=== PATIENT | female | born 1970 | race African-American/Black ===

== ENCOUNTER 2018-06-22 07:53 | Inpatient (IN) ==
[2018-06-22] MEDS ORDERED: SODIUM CHLORIDE 0.9% 1,000 ML IV STA (08:50)
[2018-06-22 09:57] LABS: Basophils % 0.5 % (0.0-0.8); Eosinophils # 0.1 10*3/uL (0.0-0.87); Hematocrit 36.9 VOL% (35.7-47.0); Hemoglobin 12.7 GM/DL (12.0-16.0); Immature Granulocytes % 0.3 %; Immature Granulocytes Absolute 0.02 #; Lymphocytes # 1.6 10*3/uL (1.4-4.0); Lymphocytes % 20.9 % (21.3-54.2); Mean Corpuscular HGB Conc 34.4 GM/DL (32-36); Mean Corpuscular Hemoglobin 30 PG (27-34); Mean Corpuscular Volume 87.4 FL (87-102); Mean Platelet Volume 10.3 FL (9.6-12.0); Monocytes # 0.6 10*3/uL (0.11-0.8); Neutrophils # 5.4 10*3/uL (1.4-7.4); Neutrophils % 69.3 % (38.7-73.9); Platelet Count 273 T/CUMM (130-400); Red Blood Count 4.22 MC/CUMM (3.8-5.5); Red Cell Distribution Width 14.6 % (9.3-17.3); White Blood Count 7.8 T/CUMM (4-12)
[2018-06-22 10:05] LABS: INR 1.1
[2018-06-22 10:12] LABS: Albumin 3.3 G/DL (3.4-5.0); Bilirubin,Total 0.5 MG/DL (0.2-1.0); Calcium 9.4 MG/DL (8.5-10.1); Total Protein 8.3 G/DL (6.4-8.3)
[2018-06-22 10:13] LABS: Osmolality,Calculated 274.5 MOS/KG (273-304); Potassium 3.7 MMOL/L (3.5-5.1)
[2018-06-22] MEDS ORDERED: ASPIRIN CHEW 81 MG TABLET PO STA (10:33)
[2018-06-22] MEDS ORDERED: ACETAMINOPHEN 325 MG TABLET PO PRN (12:05)
[2018-06-22] MEDS ORDERED: ONDANSETRON 4 MG/2 ML VIAL IV PRN (12:05)
[2018-06-22 12:42] LABS: Apearance,Urine CLEAR (Clear); Bacteria,Urine Many /HPF (Few); Bilirubin,Urine Negative (Negative); Blood, Urine Negative (Negative); Glucose,Urine (UA) Negative (Negative); Ketones,Urine Negative (Negative); Mucus,Urine Occasional /LPF (Occasional); Nitrite,Urine Positive (Negative); Protein,Urine Negative; Squamous Epithelial Cell,Urine Occasional /HPF (0-10); Urine Color Yellow (Yellow); Urine Specific Gravity 1.004 (1.001-1.035); Urine Urobilinogen < 2.0 EU/DL (0.2-1.0); WBC,Urine 2 /HPF (0-6)
[2018-06-22] MEDS: cefTRIAXone 1,000 MG in SYRINGE 1 EACH IV SCH (16:45)
[2018-06-22] MEDS: FUROSEMIDE 40 MG/4 ML VIAL IV SCH (17:37)
[2018-06-22] MEDS ORDERED: hydroCHLOROthiazide 25 MG TABLET PO SCH (19:00)
[2018-06-22 19:30] LABS: CKMB % 8.2 %
[2018-06-22 19:32] LABS: Troponin I 0.14 NG/ML (0.00-0.045)
[2018-06-23 04:11] LABS: Basophils # 0.1 10*3/uL (0.0-0.2); Basophils % 0.7 % (0.0-0.8); Eosinophils # 0.1 10*3/uL (0.0-0.87); Eosinophils % 1.8 % (0.00-10.9); Hematocrit 32.3 VOL% (35.7-47.0); Immature Granulocytes % 0.3 %; Immature Granulocytes Absolute 0.02 #; Lymphocytes # 1.9 10*3/uL (1.4-4.0); Lymphocytes % 27.6 % (21.3-54.2); Mean Corpuscular HGB Conc 34.1 GM/DL (32-36); Mean Corpuscular Hemoglobin 30 PG (27-34); Mean Corpuscular Volume 86.6 FL (87-102); Mean Platelet Volume 10.4 FL (9.6-12.0); Monocytes # 0.8 10*3/uL (0.11-0.8); Neutrophils # 3.9 10*3/uL (1.4-7.4); Neutrophils % 57.6 % (38.7-73.9); Platelet Count 348 T/CUMM (130-400); Red Blood Count 3.73 MC/CUMM (3.8-5.5); Red Cell Distribution Width 14.2 % (9.3-17.3); White Blood Count 6.7 T/CUMM (4-12)
[2018-06-23 04:35] LABS: Calcium 8.7 MG/DL (8.5-10.1); Osmolality,Calculated 278.3 MOS/KG (273-304); Potassium 3.5 MMOL/L (3.5-5.1)
[2018-06-23] MEDS: LEVOTHYROXINE 75 MCG TABLET PO SCH (06:21)
[2018-06-23] MEDS: PANTOPRAZOLE 40 MG TABLET PO SCH (09:37)
[2018-06-23] MEDS: FUROSEMIDE 40 MG/4 ML VIAL IV SCH ×2 (09:37→17:17)
[2018-06-23] MEDS: cefTRIAXone 1,000 MG in SYRINGE 1 EACH IV SCH (13:45)
[2018-06-23] MEDS ORDERED: CARVEDILOL 3.125 MG TABLET PO SCH ×2 (18:30→21:00)
[2018-06-23 20:13] LABS: Risk Ratio 2.76; VLDL CHOLESTEROL 14.8 MG/DL
[2018-06-23] MEDS: CARVEDILOL 6.25 MG TABLET PO SCH (21:21)
[2018-06-23 21:50] LABS: Calcium 8.7 MG/DL (8.5-10.1); Osmolality,Calculated 274.7 MOS/KG (273-304); Potassium 3.2 MMOL/L (3.5-5.1)
[2018-06-23 21:54] LABS: CKMB % 6.8 %
[2018-06-23 21:55] LABS: Troponin I 0.191 NG/ML (0.00-0.045)
[2018-06-24 03:15] LABS: CKMB % 6.4 %
[2018-06-24 03:21] LABS: Troponin I 0.167 NG/ML (0.00-0.045)
[2018-06-24] MEDS ORDERED: SODIUM CHLORIDE 0.9% 1,000 ML IV ONE (04:12)
[2018-06-24] MEDS: CARVEDILOL 6.25 MG TABLET PO SCH ×4 (04:16→20:59)
[2018-06-24] MEDS: LEVOTHYROXINE 75 MCG TABLET PO SCH (06:20)
[2018-06-24] MEDS ORDERED: MAGNESIUM SULF RIDER 2 GM in PREMIX 1 EACH IV PRN (07:25)
[2018-06-24] MEDS ORDERED: MAGNESIUM SULF RIDER 4 GM in PREMIX 1 EACH IV PRN (07:25)
[2018-06-24] MEDS: FUROSEMIDE 40 MG/4 ML VIAL IV SCH (08:28)
[2018-06-24] MEDS ORDERED: LISINOPRIL 2.5 MG TABLET PO SCH (09:00)
[2018-06-24] MEDS: PANTOPRAZOLE 40 MG TABLET PO SCH (09:40)
[2018-06-24 09:48] LABS: CKMB % 7.2 %
[2018-06-24 09:49] LABS: Troponin I 0.147 NG/ML (0.00-0.045)
[2018-06-24] MEDS: POTASSIUM CHLORIDE 20 MEQ TABLET PO PRN ×3 (10:37→14:00)
[2018-06-24 10:49] LABS: Barbiturates Screen,Urine Negative (Negative); Benzodiazepines Screen,Urine Negative (Negative); Cannabinoid Screen,Urine Negative (Negative); Opiate Screen,Urine Negative (Negative); Phencyclidine Screen,Urine Negative (Negative)
[2018-06-24 11:26] LABS: Bilirubin,Total 0.5 MG/DL (0.2-1.0); Calcium 8.4 MG/DL (8.5-10.1); Osmolality,Calculated 278.5 MOS/KG (273-304); Potassium 3.6 MMOL/L (3.5-5.1); Total Protein 7.8 G/DL (6.4-8.3)
[2018-06-24] MEDS: cefTRIAXone 1,000 MG in SYRINGE 1 EACH IV SCH (13:13)
[2018-06-24] MEDS ORDERED: MAGNESIUM SULF RIDER 2 GM in PREMIX 1 EACH IV ONE (15:00)
[2018-06-24] MEDS ORDERED: POTASSIUM CHLORIDE 20 MEQ/15 ML UDCUP PO ONE (15:01)
[2018-06-24] MEDS: ASPIRIN CHEW 81 MG TABLET PO SCH (16:16)
[2018-06-25] MEDS: CARVEDILOL 6.25 MG TABLET PO SCH ×4 (03:58→21:01)
[2018-06-25 04:31] LABS: Basophils % 0.6 % (0.0-0.8); Eosinophils # 0.1 10*3/uL (0.0-0.87); Eosinophils % 1.9 % (0.00-10.9); Hematocrit 32.5 VOL% (35.7-47.0); Immature Granulocytes % 0.3 %; Immature Granulocytes Absolute 0.02 #; Lymphocytes # 2.4 10*3/uL (1.4-4.0); Mean Corpuscular HGB Conc 33.8 GM/DL (32-36); Mean Corpuscular Hemoglobin 29 PG (27-34); Mean Corpuscular Volume 86.2 FL (87-102); Mean Platelet Volume 10.3 FL (9.6-12.0); Monocytes # 0.9 10*3/uL (0.11-0.8); Monocytes % 14.6 % (1.7-12.7); Neutrophils # 2.9 10*3/uL (1.4-7.4); Neutrophils % 45.6 % (38.7-73.9); Platelet Count 365 T/CUMM (130-400); Red Blood Count 3.77 MC/CUMM (3.8-5.5); Red Cell Distribution Width 14.6 % (9.3-17.3); White Blood Count 6.4 T/CUMM (4-12)
[2018-06-25 05:02] LABS: Calcium 8.4 MG/DL (8.5-10.1); Osmolality,Calculated 283.3 MOS/KG (273-304); Potassium 4.2 MMOL/L (3.5-5.1)
[2018-06-25] MEDS: LEVOTHYROXINE 75 MCG TABLET PO SCH (06:35)
[2018-06-25] MEDS: ASPIRIN CHEW 81 MG TABLET PO SCH (08:39)
[2018-06-25] MEDS: PANTOPRAZOLE 40 MG TABLET PO SCH (08:39)
[2018-06-25] MEDS: CAPTOPRIL 6.25 MG TABLET PO SCH ×2 (08:40→14:39)
[2018-06-25] MEDS ORDERED: hydroCHLOROthiazide 25 MG TABLET PO SCH (09:00)
[2018-06-25] MEDS: MIDODRINE 5 MG TABLET PO SCH ×3 (11:16→20:56)
[2018-06-25] MEDS: cefTRIAXone 1,000 MG in SYRINGE 1 EACH IV SCH (13:17)
[2018-06-25] MEDS ORDERED: ENOXAPARIN 60 MG/0.6 ML SYRINGE SUBCUT ONE (16:05)
[2018-06-26] MEDS: SODIUM CHLORIDE 0.9% 1,000 ML IV SCH (00:10)
[2018-06-26] MEDS: CARVEDILOL 6.25 MG TABLET PO SCH ×4 (03:29→21:01)
[2018-06-26 04:25] LABS: Albumin 2.6 G/DL (3.4-5.0); Bilirubin,Total 0.6 MG/DL (0.2-1.0); Calcium 8.5 MG/DL (8.5-10.1); Osmolality,Calculated 280.4 MOS/KG (273-304); Potassium 4.1 MMOL/L (3.5-5.1); Total Protein 7.2 G/DL (6.4-8.3)
[2018-06-26] MEDS: LEVOTHYROXINE 75 MCG TABLET PO SCH (06:16)
[2018-06-26] MEDS ORDERED: MAGNESIUM SULF RIDER 2 GM in PREMIX 1 EACH IV PRN (11:05)
[2018-06-26] MEDS ORDERED: POTASSIUM CHLORIDE RIDER 10 MEQ in PREMIX 1 EACH IV PRN (11:05)
[2018-06-26] MEDS ORDERED: SODIUM CHLORIDE 0.9% 1,000 ML IV SCH (13:00)
[2018-06-26] MEDS ORDERED: DIAZEPAM 5 MG TABLET PO ONE (13:30)
[2018-06-26] MEDS ORDERED: diphenhydrAMINE CAP 25 MG CAPSULE PO ONE (13:30)
[2018-06-26] MEDS: PANTOPRAZOLE 40 MG TABLET PO SCH (14:00)
[2018-06-26] MEDS: MIDODRINE 5 MG TABLET PO SCH ×3 (14:00→21:02)
[2018-06-26] MEDS: ASPIRIN CHEW 81 MG TABLET PO SCH (14:00)
[2018-06-26] MEDS ORDERED: fentaNYL 100 MCG/2 ML VIAL ONE (16:00)
[2018-06-26] MEDS ORDERED: MIDAZOLAM 2 MG/2 ML VIAL ONE (16:00)
[2018-06-26] MEDS ORDERED: LIDOCAINE 1% 20 ML VIAL ONE (16:02)
[2018-06-26] MEDS ORDERED: HEPARIN 5,000 UNIT/1 ML VIAL ONE (16:19)
[2018-06-26] MEDS: cefTRIAXone 1,000 MG in SYRINGE 1 EACH IV SCH (17:58)
[2018-06-27] MEDS: SODIUM CHLORIDE 0.9% 1,000 ML IV SCH (00:07)
[2018-06-27] MEDS: CARVEDILOL 6.25 MG TABLET PO SCH ×2 (03:46→08:23)
[2018-06-27 03:50] LABS: Basophils # 0.1 10*3/uL (0.0-0.2); Basophils % 0.8 % (0.0-0.8); Eosinophils # 0.2 10*3/uL (0.0-0.87); Eosinophils % 2.1 % (0.00-10.9); Hematocrit 33.7 VOL% (35.7-47.0); Hemoglobin 11.2 GM/DL (12.0-16.0); Immature Granulocytes % 0.3 %; Immature Granulocytes Absolute 0.02 #; Lymphocytes # 2.1 10*3/uL (1.4-4.0); Lymphocytes % 29.3 % (21.3-54.2); Mean Corpuscular HGB Conc 33.2 GM/DL (32-36); Mean Corpuscular Hemoglobin 29 PG (27-34); Mean Corpuscular Volume 88.5 FL (87-102); Mean Platelet Volume 10.5 FL (9.6-12.0); Monocytes # 0.7 10*3/uL (0.11-0.8); Monocytes % 10.2 % (1.7-12.7); Neutrophils # 4.1 10*3/uL (1.4-7.4); Neutrophils % 57.3 % (38.7-73.9); Platelet Count 371 T/CUMM (130-400); Red Blood Count 3.81 MC/CUMM (3.8-5.5); Red Cell Distribution Width 14.6 % (9.3-17.3); White Blood Count 7.2 T/CUMM (4-12)
[2018-06-27 04:26] LABS: Albumin 2.6 G/DL (3.4-5.0); Bilirubin,Total 0.5 MG/DL (0.2-1.0); CKMB % 9.4 %; Calcium 8.2 MG/DL (8.5-10.1); Osmolality,Calculated 281.3 MOS/KG (273-304); Potassium 3.8 MMOL/L (3.5-5.1); Total Protein 7.2 G/DL (6.4-8.3)
[2018-06-27 04:30] LABS: Troponin I 0.227 NG/ML (0.00-0.045)
[2018-06-27] MEDS: LEVOTHYROXINE 75 MCG TABLET PO SCH (06:06)
[2018-06-27 07:41] VITALS: BP 97/65
[2018-06-27] MEDS: MIDODRINE 5 MG TABLET PO SCH (08:22)
[2018-06-27] MEDS: ASPIRIN CHEW 81 MG TABLET PO SCH (08:22)
[2018-06-27] MEDS: PANTOPRAZOLE 40 MG TABLET PO SCH (08:25)
[2018-06-27 22:11] LABS: Arsenic Concentration w/Rflx 15 mcg/L; Cadmium/Creatinine Ratio 0.5 mcg/g Cr (<0.6); Lead/Creatinine Ratio < 1 mcg/g Cr (<2)
== END 2018-06-27 13:00 | disposition home or self-care (01) | DRG 286 ==
LOC: N.ED 07:53 → N.EDINP 07:53 → SUATTDRO 12:05 → N.2W 13:48 → N.TELES 15:07
PROVIDERS: ATTEND Hospitalist
PROC: CLCCHCL (ICD-10-PCS; 2018-06-26 15:15)

== ENCOUNTER 2018-09-16 23:01 | Inpatient (IN) ==
[2018-09-16] MEDS ORDERED: FUROSEMIDE 100 MG/10 ML VIAL IV STA (23:44)
[2018-09-16] MEDS ORDERED: DILTIAZEM 50 MG/10 ML VIAL IV STA (23:44)
[2018-09-17] MEDS ORDERED: DILTIAZEM 25 MG/5 ML VIAL IV ONE (00:18)
[2018-09-17] MEDS ORDERED: BUMETANIDE 1 MG/4 ML VIAL IV STA (00:25)
[2018-09-17 01:09] LABS: INR 1.7; PT Patient Result 18.7 SECS
[2018-09-17 01:16] LABS: Albumin 2.7 G/DL (3.4-5.0); Bilirubin,Total 0.7 MG/DL (0.2-1.0); CKMB % 6.9 %; Calcium 8.5 MG/DL (8.5-10.1); Osmolality,Calculated 287.7 MOS/KG (273-304); Potassium 4.4 MMOL/L (3.5-5.1)
[2018-09-17 01:18] LABS: Troponin I 0.08 NG/ML (0.00-0.045)
[2018-09-17 01:26] LABS: Free T4 (Free Thyroxine) 1.34 NG/DL (0.76-1.46); Thyroid Stimulating Hormone 14.8 uIU/ml (0.358-3.74)
[2018-09-17 01:30] LABS: Basophils % 0.6 % (0.0-0.8); Eosinophils % 0.4 % (0.00-10.9); Hematocrit 37.3 VOL% (35.7-47.0); Hemoglobin 11.7 GM/DL (12.0-16.0); Immature Granulocytes % 0.3 %; Immature Granulocytes Absolute 0.02 #; Lymphocytes % 28.2 % (21.3-54.2); Mean Corpuscular HGB Conc 31.4 GM/DL (32-36); Mean Corpuscular Hemoglobin 28 PG (27-34); Mean Platelet Volume 9.9 FL (9.6-12.0); Monocytes # 0.8 10*3/uL (0.11-0.8); Neutrophils # 4.2 10*3/uL (1.4-7.4); Neutrophils % 59.5 % (38.7-73.9); Platelet Count 285 T/CUMM (130-400); Red Blood Count 4.24 MC/CUMM (3.8-5.5); Red Cell Distribution Width 16.7 % (9.3-17.3)
[2018-09-17 02:19] LABS: Apearance,Urine Slightly Hazy (Clear); Bacteria,Urine Occasional /HPF (Few); Bilirubin,Urine Negative (Negative); Blood, Urine Small mg/dL (Negative); Glucose,Urine (UA) Negative (Negative); Ketones,Urine Negative (Negative); Mucus,Urine Few /LPF (Occasional); Nitrite,Urine Negative (Negative); Protein,Urine Negative; RBC,Urine 1 /HPF (0-4); Squamous Epithelial Cell,Urine Occasional /HPF (0-10); Urine Color Yellow (Yellow); Urine Specific Gravity 1.008 (1.001-1.035); Urine Urobilinogen < 2.0 EU/DL (0.2-1.0); WBC,Urine 2 /HPF (0-6)
[2018-09-17 02:47] LABS: Barbiturates Screen,Urine Negative (Negative); Benzodiazepines Screen,Urine Negative (Negative); Cannabinoid Screen,Urine Negative (Negative); Opiate Screen,Urine Negative (Negative); Phencyclidine Screen,Urine Negative (Negative)
[2018-09-17] MEDS ORDERED: diphenhydrAMINE CAP 25 MG CAPSULE PO PRN (04:35)
[2018-09-17] MEDS ORDERED: NICOTINE 21 MG/24 HR PATCH TRANSDERM PRN (04:35)
[2018-09-17] MEDS ORDERED: MORPHINE 4 MG/1 ML VIAL IV PRN (04:35)
[2018-09-17] MEDS ORDERED: ACETAMINOPHEN 325 MG TABLET PO PRN (04:35)
[2018-09-17] MEDS ORDERED: ONDANSETRON 4 MG/2 ML VIAL IV PRN (04:35)
[2018-09-17] MEDS: dilTIAZem Drip 125 MG/125 ML PREMIX IV SCH (05:02)
[2018-09-17 06:18] LABS: Risk Ratio 2.52; VLDL CHOLESTEROL 14.8 MG/DL
[2018-09-17] MEDS: FUROSEMIDE 40 MG/4 ML VIAL IV SCH ×2 (07:43→17:38)
[2018-09-17] MEDS: LEVOTHYROXINE 75 MCG TABLET PO SCH (07:43)
[2018-09-17] MEDS: DIGOXIN 0.125 MG TABLET PO SCH (10:15)
[2018-09-17] MEDS: ASPIRIN CHEW 81 MG TABLET PO SCH (10:15)
[2018-09-17] MEDS: PANTOPRAZOLE 40 MG TABLET PO SCH (10:15)
[2018-09-17] MEDS: ENOXAPARIN 40 MG/0.4 ML SYRINGE SUBCUT SCH (10:16)
[2018-09-17] MEDS: SPIRONOLACTONE 25 MG TABLET PO SCH (10:16)
[2018-09-17] MEDS: CARVEDILOL 6.25 MG TABLET PO SCH ×2 (12:02→21:06)
[2018-09-17] MEDS: ASCORBIC ACID 500 MG TABLET PO SCH ×2 (12:02→21:06)
[2018-09-17] MEDS: POTASSIUM CHLORIDE 20 MEQ TABLET PO SCH (12:02)
[2018-09-17] MEDS: LOSARTAN 25 MG TABLET PO SCH (12:02)
[2018-09-17] MEDS: MAGNESIUM CHLORIDE 64 MG TABLET PO SCH ×2 (12:02→21:06)
[2018-09-17] MEDS: traZODone 50 MG TABLET PO SCH (21:06)
[2018-09-18 04:27] LABS: Calcium 8.4 MG/DL (8.5-10.1); Osmolality,Calculated 281.3 MOS/KG (273-304)
[2018-09-18] MEDS: LEVOTHYROXINE 75 MCG TABLET PO SCH (06:41)
[2018-09-18] MEDS: dilTIAZem Drip 125 MG/125 ML PREMIX IV SCH (07:04)
[2018-09-18] MEDS: FUROSEMIDE 40 MG/4 ML VIAL IV SCH ×3 (08:52→20:32)
[2018-09-18] MEDS: ALUMINUM/MAGNES/SIMETH MAX STR 30 ML UDCUP PO PRN (09:31)
[2018-09-18] MEDS: ENOXAPARIN 40 MG/0.4 ML SYRINGE SUBCUT SCH (10:13)
[2018-09-18] MEDS: DIGOXIN 0.125 MG TABLET PO SCH (10:14)
[2018-09-18] MEDS: LOSARTAN 25 MG TABLET PO SCH (10:14)
[2018-09-18] MEDS: ASPIRIN CHEW 81 MG TABLET PO SCH (10:14)
[2018-09-18] MEDS: ASCORBIC ACID 500 MG TABLET PO SCH ×2 (10:14→20:22)
[2018-09-18] MEDS: POTASSIUM CHLORIDE 20 MEQ TABLET PO SCH (10:14)
[2018-09-18] MEDS: MAGNESIUM CHLORIDE 64 MG TABLET PO SCH ×2 (10:14→20:22)
[2018-09-18] MEDS: PANTOPRAZOLE 40 MG TABLET PO SCH (10:15)
[2018-09-18] MEDS: CARVEDILOL 6.25 MG TABLET PO SCH ×2 (10:15→20:22)
[2018-09-18] MEDS: SPIRONOLACTONE 25 MG TABLET PO SCH (10:15)
[2018-09-18] MEDS: VANCOMYCIN INJ 1,250 MG in SODIUM CHLORIDE 0.9% 250 ML IV SCH (15:04)
[2018-09-18] MEDS: MIDODRINE 5 MG TABLET PO SCH ×3 (20:22→20:28)
[2018-09-18] MEDS: AMIODARONE 200 MG TABLET PO SCH (20:22)
[2018-09-18] MEDS: traZODone 50 MG TABLET PO SCH (20:22)
[2018-09-19] MEDS: VANCOMYCIN INJ 1,250 MG in SODIUM CHLORIDE 0.9% 250 ML IV SCH (00:05)
[2018-09-19] MEDS: dilTIAZem Drip 125 MG/125 ML PREMIX IV SCH (04:03)
[2018-09-19 04:23] LABS: Basophils % 0.5 % (0.0-0.8); Eosinophils # 0.1 10*3/uL (0.0-0.87); Eosinophils % 1.6 % (0.00-10.9); Hematocrit 33.9 VOL% (35.7-47.0); Hemoglobin 11.1 GM/DL (12.0-16.0); Immature Granulocytes % 0.3 %; Immature Granulocytes Absolute 0.02 #; Lymphocytes # 2.3 10*3/uL (1.4-4.0); Lymphocytes % 30.4 % (21.3-54.2); Mean Corpuscular HGB Conc 32.7 GM/DL (32-36); Mean Corpuscular Hemoglobin 28 PG (27-34); Mean Corpuscular Volume 85.8 FL (87-102); Monocytes # 0.8 10*3/uL (0.11-0.8); Monocytes % 10.4 % (1.7-12.7); Neutrophils # 4.2 10*3/uL (1.4-7.4); Neutrophils % 56.8 % (38.7-73.9); Platelet Count 271 T/CUMM (130-400); Red Blood Count 3.95 MC/CUMM (3.8-5.5); Red Cell Distribution Width 16.2 % (9.3-17.3); White Blood Count 7.4 T/CUMM (4-12)
[2018-09-19 04:40] LABS: Calcium 8.2 MG/DL (8.5-10.1); Osmolality,Calculated 284.1 MOS/KG (273-304); Potassium 3.9 MMOL/L (3.5-5.1)
[2018-09-19 04:42] LABS: Calcium 8.3 MG/DL (8.5-10.1); Potassium 3.9 MMOL/L (3.5-5.1)
[2018-09-19 04:56] LABS: Total Protein 7.3 G/DL (6.4-8.3)
[2018-09-19] MEDS: LEVOTHYROXINE 100 MCG TABLET PO SCH (05:52)
[2018-09-19 06:19] LABS: Immunoglobulin A (Chem) 377 MG/DL (70-400); Immunoglobulin G (Chem) 2260 MG/DL (700-1600); Immunoglobulin M (Chem) 106 MG/DL (40-230); Total Protein (Chem) 7.3 G/DL (6.4-8.3)
[2018-09-19 07:45] LABS: Albumin (SPE) 3.1 G/DL (3.2-5.3); Albumin (SPE) Rel % 42.6 %; Alpha 1 (SPE) 0.2 G/DL (0.1-0.4); Alpha 1 (SPE) Rel % 3.2 %; Alpha 2 (SPE) 0.8 G/DL (0.4-1.0); Alpha 2 (SPE) Rel % 10.6 %; Beta (SPE) 0.8 G/DL (0.5-1.1); Beta (SPE) Rel % 11.1 %; Gamma (SPE) 2.4 G/DL (0.7-1.7); Gamma (SPE) Rel % 32.5 %
[2018-09-19] MEDS: MIDODRINE 5 MG TABLET PO SCH ×3 (08:46→21:06)
[2018-09-19] MEDS: POTASSIUM CHLORIDE 20 MEQ TABLET PO SCH (08:47)
[2018-09-19] MEDS: DIGOXIN 0.125 MG TABLET PO SCH (08:47)
[2018-09-19] MEDS: AMIODARONE 200 MG TABLET PO SCH ×2 (08:47→21:07)
[2018-09-19] MEDS: CARVEDILOL 6.25 MG TABLET PO SCH ×2 (08:47→21:07)
[2018-09-19] MEDS: MAGNESIUM CHLORIDE 64 MG TABLET PO SCH ×2 (08:47→21:07)
[2018-09-19] MEDS: ASCORBIC ACID 500 MG TABLET PO SCH ×2 (08:47→21:07)
[2018-09-19] MEDS: ASPIRIN CHEW 81 MG TABLET PO SCH (08:47)
[2018-09-19] MEDS: LOSARTAN 25 MG TABLET PO SCH (08:48)
[2018-09-19] MEDS: PANTOPRAZOLE 40 MG TABLET PO SCH (08:48)
[2018-09-19] MEDS: ENOXAPARIN 40 MG/0.4 ML SYRINGE SUBCUT SCH (08:48)
[2018-09-19] MEDS: SPIRONOLACTONE 25 MG TABLET PO SCH (08:48)
[2018-09-19] MEDS: ALUMINUM/MAGNES/SIMETH MAX STR 30 ML UDCUP PO PRN ×2 (08:54→17:50)
[2018-09-19] MEDS: FUROSEMIDE 40 MG/4 ML VIAL IV SCH ×2 (10:40→16:30)
[2018-09-19] MEDS: APIXABAN 5 MG TABLET PO SCH ×2 (11:50→21:07)
[2018-09-19] MEDS: ceFAZolin 2,000 MG in PREMIX 1 EACH IV SCH ×2 (11:50→18:40)
[2018-09-19] MEDS: metOLazone 5 MG TABLET PO SCH (11:50)
[2018-09-19] MEDS: traZODone 50 MG TABLET PO SCH (21:07)
[2018-09-20] MEDS: ceFAZolin 2,000 MG in PREMIX 1 EACH IV SCH ×3 (04:27→18:15)
[2018-09-20 04:35] LABS: Basophils % 0.6 % (0.0-0.8); Eosinophils # 0.2 10*3/uL (0.0-0.87); Eosinophils % 2.7 % (0.00-10.9); Hematocrit 33.7 VOL% (35.7-47.0); Hemoglobin 11.2 GM/DL (12.0-16.0); Immature Granulocytes % 0.4 %; Immature Granulocytes Absolute 0.03 #; Lymphocytes # 2.2 10*3/uL (1.4-4.0); Lymphocytes % 31.7 % (21.3-54.2); Mean Corpuscular HGB Conc 33.2 GM/DL (32-36); Mean Corpuscular Hemoglobin 28 PG (27-34); Mean Corpuscular Volume 85.5 FL (87-102); Mean Platelet Volume 10.2 FL (9.6-12.0); Monocytes # 0.6 10*3/uL (0.11-0.8); Neutrophils % 56.6 % (38.7-73.9); Platelet Count 293 T/CUMM (130-400); Red Blood Count 3.94 MC/CUMM (3.8-5.5); Red Cell Distribution Width 16.3 % (9.3-17.3)
[2018-09-20 04:56] LABS: Collection Time,Urine 24 HOURS; Total Protein 24 Hr Ur Result 520 MG/24HR (0-149.1); Total Volume,Urine 6500 ML (400-2000)
[2018-09-20 04:59] LABS: Calcium 8.6 MG/DL (8.5-10.1); Osmolality,Calculated 281.4 MOS/KG (273-304); Potassium 3.9 MMOL/L (3.5-5.1)
[2018-09-20] MEDS: LEVOTHYROXINE 100 MCG TABLET PO SCH (06:37)
[2018-09-20 07:46] LABS: 24 Hr Protein (Bench) 520 MG/24HR (0-149.1)
[2018-09-20] MEDS: ALUMINUM/MAGNES/SIMETH MAX STR 30 ML UDCUP PO PRN ×2 (08:03→15:35)
[2018-09-20] MEDS: MIDODRINE 5 MG TABLET PO SCH ×3 (09:14→21:57)
[2018-09-20] MEDS: LOSARTAN 25 MG TABLET PO SCH (09:15)
[2018-09-20] MEDS: PANTOPRAZOLE 40 MG TABLET PO SCH (09:15)
[2018-09-20] MEDS: FUROSEMIDE 40 MG/4 ML VIAL IV SCH ×2 (09:15→15:35)
[2018-09-20] MEDS: AMIODARONE 200 MG TABLET PO SCH ×2 (09:15→21:57)
[2018-09-20] MEDS: SPIRONOLACTONE 25 MG TABLET PO SCH (09:15)
[2018-09-20] MEDS: ASPIRIN CHEW 81 MG TABLET PO SCH (09:15)
[2018-09-20] MEDS: DIGOXIN 0.125 MG TABLET PO SCH (09:15)
[2018-09-20] MEDS: CARVEDILOL 6.25 MG TABLET PO SCH ×2 (09:15→21:58)
[2018-09-20] MEDS: APIXABAN 5 MG TABLET PO SCH ×2 (09:15→21:57)
[2018-09-20] MEDS: MAGNESIUM CHLORIDE 64 MG TABLET PO SCH ×2 (09:15→21:57)
[2018-09-20] MEDS: POTASSIUM CHLORIDE 20 MEQ TABLET PO SCH (09:15)
[2018-09-20] MEDS: ASCORBIC ACID 500 MG TABLET PO SCH ×2 (09:15→21:57)
[2018-09-20] MEDS: metOLazone 5 MG TABLET PO SCH (09:31)
[2018-09-20] MEDS: traZODone 50 MG TABLET PO SCH (21:57)
[2018-09-21] MEDS: ceFAZolin 2,000 MG in PREMIX 1 EACH IV SCH ×3 (03:45→18:05)
[2018-09-21 04:25] LABS: Calcium 8.9 MG/DL (8.5-10.1); Osmolality,Calculated 279.5 MOS/KG (273-304)
[2018-09-21] MEDS: LEVOTHYROXINE 100 MCG TABLET PO SCH (07:00)
[2018-09-21] MEDS: ALUMINUM/MAGNES/SIMETH MAX STR 30 ML UDCUP PO PRN ×2 (09:05→16:43)
[2018-09-21] MEDS: DIGOXIN 0.125 MG TABLET PO SCH (09:06)
[2018-09-21] MEDS: PANTOPRAZOLE 40 MG TABLET PO SCH (09:06)
[2018-09-21] MEDS: SPIRONOLACTONE 25 MG TABLET PO SCH (09:06)
[2018-09-21] MEDS: MIDODRINE 5 MG TABLET PO SCH ×3 (09:06→21:42)
[2018-09-21] MEDS: CARVEDILOL 6.25 MG TABLET PO SCH ×2 (09:07→21:43)
[2018-09-21] MEDS: metOLazone 5 MG TABLET PO SCH (09:07)
[2018-09-21] MEDS: ASPIRIN CHEW 81 MG TABLET PO SCH (09:07)
[2018-09-21] MEDS: ASCORBIC ACID 500 MG TABLET PO SCH ×2 (09:07→21:42)
[2018-09-21] MEDS: MAGNESIUM CHLORIDE 64 MG TABLET PO SCH ×2 (09:07→21:42)
[2018-09-21] MEDS: POTASSIUM CHLORIDE 20 MEQ TABLET PO SCH (09:07)
[2018-09-21] MEDS: APIXABAN 5 MG TABLET PO SCH ×2 (09:07→21:44)
[2018-09-21] MEDS: AMIODARONE 200 MG TABLET PO SCH ×2 (09:08→21:43)
[2018-09-21] MEDS: FUROSEMIDE 40 MG/4 ML VIAL IV SCH ×2 (09:08→16:42)
[2018-09-21] MEDS: traZODone 50 MG TABLET PO SCH (21:42)
[2018-09-22 05:37] LABS: Osmolality,Calculated 272.1 MOS/KG (273-304); Potassium 4.1 MMOL/L (3.5-5.1)
[2018-09-22] MEDS: ceFAZolin 2,000 MG in PREMIX 1 EACH IV SCH ×3 (06:31→18:26)
[2018-09-22] MEDS: LEVOTHYROXINE 100 MCG TABLET PO SCH (06:31)
[2018-09-22 09:03] LABS: Anti SS-A Antibodies < 16 EU/ML
[2018-09-22 09:05] LABS: Double Stranded DNA Antibodies < 25.0 IU/ML
[2018-09-22] MEDS: ALUMINUM/MAGNES/SIMETH MAX STR 30 ML UDCUP PO PRN (09:18)
[2018-09-22] MEDS: APIXABAN 5 MG TABLET PO SCH ×2 (09:19→20:48)
[2018-09-22] MEDS: POTASSIUM CHLORIDE 20 MEQ TABLET PO SCH (09:19)
[2018-09-22] MEDS: ASCORBIC ACID 500 MG TABLET PO SCH ×2 (09:19→20:48)
[2018-09-22] MEDS: MAGNESIUM CHLORIDE 64 MG TABLET PO SCH ×2 (09:19→20:48)
[2018-09-22] MEDS: AMIODARONE 200 MG TABLET PO SCH ×2 (09:20→20:48)
[2018-09-22] MEDS: DIGOXIN 0.125 MG TABLET PO SCH (09:20)
[2018-09-22] MEDS: ASPIRIN CHEW 81 MG TABLET PO SCH (09:20)
[2018-09-22] MEDS: metOLazone 5 MG TABLET PO SCH (09:21)
[2018-09-22] MEDS: SPIRONOLACTONE 25 MG TABLET PO SCH (09:21)
[2018-09-22] MEDS: FUROSEMIDE 40 MG/4 ML VIAL IV SCH ×2 (09:21→15:35)
[2018-09-22] MEDS: CARVEDILOL 6.25 MG TABLET PO SCH ×2 (09:21→20:48)
[2018-09-22] MEDS: PANTOPRAZOLE 40 MG TABLET PO SCH (09:22)
[2018-09-22] MEDS: MIDODRINE 5 MG TABLET PO SCH ×3 (10:22→20:48)
[2018-09-22] MEDS: traZODone 50 MG TABLET PO SCH (20:48)
[2018-09-23] MEDS: ceFAZolin 2,000 MG in PREMIX 1 EACH IV SCH ×3 (02:13→18:18)
[2018-09-23 06:11] LABS: Calcium 9.3 MG/DL (8.5-10.1)
[2018-09-23] MEDS: LEVOTHYROXINE 100 MCG TABLET PO SCH (06:20)
[2018-09-23] MEDS: MAGNESIUM CHLORIDE 64 MG TABLET PO SCH ×2 (09:46→20:51)
[2018-09-23] MEDS: ASCORBIC ACID 500 MG TABLET PO SCH ×2 (09:47→20:51)
[2018-09-23] MEDS: metOLazone 5 MG TABLET PO SCH (09:47)
[2018-09-23] MEDS: PANTOPRAZOLE 40 MG TABLET PO SCH (09:47)
[2018-09-23] MEDS: DIGOXIN 0.125 MG TABLET PO SCH (09:47)
[2018-09-23] MEDS: AMIODARONE 200 MG TABLET PO SCH ×2 (09:47→20:12)
[2018-09-23] MEDS: APIXABAN 5 MG TABLET PO SCH ×2 (09:48→20:51)
[2018-09-23] MEDS: ASPIRIN CHEW 81 MG TABLET PO SCH (09:48)
[2018-09-23] MEDS: POTASSIUM CHLORIDE 20 MEQ TABLET PO SCH (09:48)
[2018-09-23] MEDS: SPIRONOLACTONE 25 MG TABLET PO SCH (09:48)
[2018-09-23] MEDS: CARVEDILOL 6.25 MG TABLET PO SCH ×2 (09:49→20:12)
[2018-09-23] MEDS: FUROSEMIDE 40 MG/4 ML VIAL IV SCH (09:49)
[2018-09-23] MEDS: MIDODRINE 5 MG TABLET PO SCH ×3 (10:02→20:51)
[2018-09-23] MEDS ORDERED: SPIRONOLACTONE 25 MG TABLET PO SCH (13:18)
[2018-09-23] MEDS: FUROSEMIDE 80 MG TABLET PO SCH (16:33)
[2018-09-23] MEDS: traZODone 50 MG TABLET PO SCH (20:51)
[2018-09-24] MEDS: ceFAZolin 2,000 MG in PREMIX 1 EACH IV SCH ×2 (02:05→10:46)
[2018-09-24 05:42] LABS: Osmolality,Calculated 278.8 MOS/KG (273-304); Potassium 4.1 MMOL/L (3.5-5.1)
[2018-09-24] MEDS: LEVOTHYROXINE 100 MCG TABLET PO SCH (06:09)
[2018-09-24 08:14] VITALS: BP 88/59
[2018-09-24] MEDS ORDERED: SPIRONOLACTONE 25 MG TABLET PO SCH (09:00)
[2018-09-24] MEDS: MIDODRINE 5 MG TABLET PO SCH (09:16)
[2018-09-24] MEDS: ASCORBIC ACID 500 MG TABLET PO SCH (09:17)
[2018-09-24] MEDS: MAGNESIUM CHLORIDE 64 MG TABLET PO SCH (09:17)
[2018-09-24] MEDS: APIXABAN 5 MG TABLET PO SCH (09:17)
[2018-09-24] MEDS: metOLazone 5 MG TABLET PO SCH (09:17)
[2018-09-24] MEDS: AMIODARONE 200 MG TABLET PO SCH (09:18)
[2018-09-24] MEDS: FUROSEMIDE 80 MG TABLET PO SCH (09:18)
[2018-09-24] MEDS: PANTOPRAZOLE 40 MG TABLET PO SCH (09:19)
[2018-09-24] MEDS: DIGOXIN 0.125 MG TABLET PO SCH (09:19)
[2018-09-24] MEDS: ASPIRIN CHEW 81 MG TABLET PO SCH (09:20)
[2018-09-24] MEDS: CARVEDILOL 6.25 MG TABLET PO SCH (09:20)
[2018-09-24] MEDS: POTASSIUM CHLORIDE 20 MEQ TABLET PO SCH (09:20)
== END 2018-09-24 12:17 | disposition home or self-care (01) | DRG 308 ==
LOC: EDUNIT# → EDBD → N.ED 23:01 → N.EDINP 23:01 → SUATTDRO 09-17 01:53 → N.TELES 09-17 02:30 → SUATTDRO 09-18 10:20
PROVIDERS: ADMIT Internal Medicine Infectious Disease; ATTEND Family Medicine

== ENCOUNTER 2018-10-02 21:15 | Inpatient (IN) ==
[2018-10-02] MEDS ORDERED: ADENOSINE 6 MG/2 ML VIAL IV STA (21:40)
[2018-10-02 21:53] LABS: Basophils % 0.5 % (0.0-0.8); Eosinophils # 0.2 10*3/uL (0.0-0.87); Eosinophils % 2.1 % (0.00-10.9); Hematocrit 31.7 VOL% (35.7-47.0); Hemoglobin 10.4 GM/DL (12.0-16.0); Immature Granulocytes % 0.3 %; Immature Granulocytes Absolute 0.02 #; Lymphocytes # 2.9 10*3/uL (1.4-4.0); Mean Corpuscular HGB Conc 32.8 GM/DL (32-36); Mean Corpuscular Hemoglobin 29 PG (27-34); Mean Corpuscular Volume 87.8 FL (87-102); Mean Platelet Volume 9.4 FL (9.6-12.0); Monocytes # 0.8 10*3/uL (0.11-0.8); Monocytes % 9.6 % (1.7-12.7); Neutrophils # 4.1 10*3/uL (1.4-7.4); Neutrophils % 51.5 % (38.7-73.9); Platelet Count 361 T/CUMM (130-400); Red Blood Count 3.61 MC/CUMM (3.8-5.5)
[2018-10-02 21:59] LABS: INR 1.2; PT Patient Result 12.5 SECS
[2018-10-02 22:20] LABS: Alanine Aminotransferase 15 U/L (13-56); Albumin 2.9 G/DL (3.4-5.0); Alkaline Phosphatase 78 U/L (45-117); Aspartate Amino Transferase 32 U/L (0-37); Bilirubin,Total < 0.39 MG/DL (0.2-1.0); Blood Urea Nitrogen 20 MG/DL (7-18); Calcium 8.6 MG/DL (8.5-10.1); Glucose 106 MG/DL (74-106); Osmolality,Calculated 275.8 MOS/KG (273-304); Sodium 137 MMOL/L (136-145); Total Protein 8.7 G/DL (6.4-8.3)
[2018-10-03 01:48] LABS: Barbiturates Screen,Urine Negative (Negative); Benzodiazepines Screen,Urine Negative (Negative); Cannabinoid Screen,Urine Negative (Negative); Opiate Screen,Urine Negative (Negative); Phencyclidine Screen,Urine Negative (Negative)
[2018-10-03] MEDS ORDERED: ACETAMINOPHEN 325 MG TABLET PO PRN (02:54)
[2018-10-03] MEDS ORDERED: DOCUSATE SODIUM 100 MG CAPSULE PO PRN (02:54)
[2018-10-03] MEDS ORDERED: ONDANSETRON 4 MG/2 ML VIAL IV PRN (02:54)
[2018-10-03 04:11] LABS: Basophils % 0.5 % (0.0-0.8); Eosinophils # 0.1 10*3/uL (0.0-0.87); Eosinophils % 1.2 % (0.00-10.9); Hematocrit 29.6 VOL% (35.7-47.0); Hemoglobin 9.7 GM/DL (12.0-16.0); Immature Granulocytes % 0.4 %; Immature Granulocytes Absolute 0.03 #; Lymphocytes # 2.2 10*3/uL (1.4-4.0); Lymphocytes % 27.9 % (21.3-54.2); Mean Corpuscular HGB Conc 32.8 GM/DL (32-36); Mean Corpuscular Hemoglobin 29 PG (27-34); Mean Corpuscular Volume 87.3 FL (87-102); Mean Platelet Volume 9.6 FL (9.6-12.0); Monocytes # 1.1 10*3/uL (0.11-0.8); Monocytes % 13.6 % (1.7-12.7); Neutrophils # 4.5 10*3/uL (1.4-7.4); Neutrophils % 56.4 % (38.7-73.9); Platelet Count 297 T/CUMM (130-400); Red Blood Count 3.39 MC/CUMM (3.8-5.5); Red Cell Distribution Width 16.9 % (9.3-17.3)
[2018-10-03 04:18] LABS: Calcium 8.1 MG/DL (8.5-10.1); Osmolality,Calculated 276.7 MOS/KG (273-304)
[2018-10-03] MEDS ORDERED: LEVOTHYROXINE 75 MCG TABLET PO SCH (07:00)
[2018-10-03] MEDS ORDERED: CARVEDILOL 6.25 MG TABLET PO SCH (09:00)
[2018-10-03] MEDS ORDERED: metOLazone 5 MG TABLET PO SCH (09:00)
[2018-10-03] MEDS ORDERED: LEVOTHYROXINE 50 MCG TABLET PO SCH ×2 (09:35→09:59)
[2018-10-03] MEDS: ASPIRIN CHEW 81 MG TABLET PO SCH (09:38)
[2018-10-03] MEDS: MAGNESIUM CHLORIDE 64 MG TABLET PO SCH ×2 (09:38→21:22)
[2018-10-03] MEDS: SPIRONOLACTONE 25 MG TABLET PO SCH (09:38)
[2018-10-03] MEDS: FAMOTIDINE 20 MG TABLET PO SCH ×2 (09:38→21:23)
[2018-10-03] MEDS: MIDODRINE 5 MG TABLET PO SCH ×3 (09:38→21:23)
[2018-10-03] MEDS: ASCORBIC ACID 500 MG TABLET PO SCH ×2 (09:39→21:22)
[2018-10-03] MEDS: POTASSIUM CHLORIDE 20 MEQ TABLET PO SCH (09:39)
[2018-10-03] MEDS: FUROSEMIDE 80 MG TABLET PO SCH ×2 (09:39→16:37)
[2018-10-03] MEDS: APIXABAN 5 MG TABLET PO SCH ×3 (09:39→21:23)
[2018-10-03] MEDS: AMIODARONE 200 MG TABLET PO SCH ×2 (09:39→21:22)
[2018-10-03] MEDS ORDERED: HEPARIN DRIP 25,000 UNITS/500 ML PREMIX IV SCH (10:00)
[2018-10-03] MEDS: DIGOXIN 0.125 MG TABLET PO SCH (13:33)
[2018-10-03] MEDS: traZODone 50 MG TABLET PO SCH (21:22)
[2018-10-03] MEDS: CARVEDILOL 12.5 MG TABLET PO SCH (21:24)
[2018-10-04 05:14] LABS: Calcium 8.7 MG/DL (8.5-10.1); Osmolality,Calculated 282.3 MOS/KG (273-304); Potassium 4.4 MMOL/L (3.5-5.1)
[2018-10-04 05:31] LABS: Basophils # 0.1 10*3/uL (0.0-0.2); Basophils % 1.1 % (0.0-0.8); Eosinophils # 0.1 10*3/uL (0.0-0.87); Hematocrit 29.7 VOL% (35.7-47.0); Hemoglobin 9.9 GM/DL (12.0-16.0); Immature Granulocytes % 0.4 %; Immature Granulocytes Absolute 0.02 #; Lymphocytes # 1.8 10*3/uL (1.4-4.0); Mean Corpuscular HGB Conc 33.3 GM/DL (32-36); Mean Corpuscular Hemoglobin 29 PG (27-34); Mean Corpuscular Volume 87.4 FL (87-102); Mean Platelet Volume 9.7 FL (9.6-12.0); Monocytes # 0.7 10*3/uL (0.11-0.8); Monocytes % 12.4 % (1.7-12.7); Neutrophils % 53.1 % (38.7-73.9); Platelet Count 309 T/CUMM (130-400); Red Cell Distribution Width 16.6 % (9.3-17.3); White Blood Count 5.6 T/CUMM (4-12)
[2018-10-04] MEDS: APIXABAN 5 MG TABLET PO SCH ×2 (08:54→21:37)
[2018-10-04] MEDS: POTASSIUM CHLORIDE 20 MEQ TABLET PO SCH (08:54)
[2018-10-04] MEDS: CARVEDILOL 12.5 MG TABLET PO SCH ×2 (08:54→21:37)
[2018-10-04] MEDS: FAMOTIDINE 20 MG TABLET PO SCH ×2 (08:54→21:38)
[2018-10-04] MEDS: ASPIRIN CHEW 81 MG TABLET PO SCH (08:54)
[2018-10-04] MEDS: ASCORBIC ACID 500 MG TABLET PO SCH ×2 (08:54→21:36)
[2018-10-04] MEDS: AMIODARONE 200 MG TABLET PO SCH ×2 (08:54→21:37)
[2018-10-04] MEDS: MAGNESIUM CHLORIDE 64 MG TABLET PO SCH ×2 (08:54→21:36)
[2018-10-04] MEDS: MIDODRINE 5 MG TABLET PO SCH ×3 (08:54→21:37)
[2018-10-04] MEDS: FUROSEMIDE 80 MG TABLET PO SCH ×2 (08:55→09:28)
[2018-10-04] MEDS: SPIRONOLACTONE 25 MG TABLET PO SCH (08:55)
[2018-10-04] MEDS ORDERED: FUROSEMIDE 40 MG TABLET PO SCH (09:30)
[2018-10-04] MEDS: DIGOXIN 0.125 MG TABLET PO SCH (14:41)
[2018-10-04] MEDS: FUROSEMIDE 20 MG TABLET PO SCH (16:33)
[2018-10-04] MEDS: metOLazone 5 MG TABLET PO SCH (16:33)
[2018-10-04] MEDS: SKIN HEALING OINT (AQUAPHOR) 50 GM TUBE TOP SCH (16:34)
[2018-10-04] MEDS: traZODone 50 MG TABLET PO SCH (21:38)
[2018-10-05 04:16] LABS: Basophils % 0.6 % (0.0-0.8); Eosinophils # 0.1 10*3/uL (0.0-0.87); Hemoglobin 10.1 GM/DL (12.0-16.0); Immature Granulocytes % 0.2 %; Immature Granulocytes Absolute 0.01 #; Lymphocytes # 2.5 10*3/uL (1.4-4.0); Lymphocytes % 37.8 % (21.3-54.2); Mean Corpuscular HGB Conc 33.7 GM/DL (32-36); Mean Corpuscular Hemoglobin 29 PG (27-34); Mean Corpuscular Volume 86.5 FL (87-102); Mean Platelet Volume 9.5 FL (9.6-12.0); Monocytes # 0.7 10*3/uL (0.11-0.8); Monocytes % 11.4 % (1.7-12.7); Neutrophils # 3.1 10*3/uL (1.4-7.4); Platelet Count 325 T/CUMM (130-400); Red Blood Count 3.47 MC/CUMM (3.8-5.5); Red Cell Distribution Width 16.7 % (9.3-17.3); White Blood Count 6.5 T/CUMM (4-12)
[2018-10-05 04:41] LABS: Calcium 8.6 MG/DL (8.5-10.1); Osmolality,Calculated 280.5 MOS/KG (273-304); Potassium 4.2 MMOL/L (3.5-5.1)
[2018-10-05] MEDS: LEVOTHYROXINE 100 MCG TABLET PO SCH (06:20)
[2018-10-05] MEDS: SKIN HEALING OINT (AQUAPHOR) 50 GM TUBE TOP SCH (09:00)
[2018-10-05] MEDS: MIDODRINE 5 MG TABLET PO SCH ×3 (09:45→22:31)
[2018-10-05] MEDS: POTASSIUM CHLORIDE 20 MEQ TABLET PO SCH (09:45)
[2018-10-05] MEDS: MAGNESIUM CHLORIDE 64 MG TABLET PO SCH ×2 (09:45→22:32)
[2018-10-05] MEDS: FAMOTIDINE 20 MG TABLET PO SCH ×2 (09:45→22:32)
[2018-10-05] MEDS: AMIODARONE 200 MG TABLET PO SCH ×2 (09:45→22:33)
[2018-10-05] MEDS: APIXABAN 5 MG TABLET PO SCH ×2 (09:45→22:31)
[2018-10-05] MEDS: FUROSEMIDE 20 MG TABLET PO SCH ×2 (09:45→16:35)
[2018-10-05] MEDS: metOLazone 5 MG TABLET PO SCH (09:45)
[2018-10-05] MEDS: ASCORBIC ACID 500 MG TABLET PO SCH ×2 (09:45→22:32)
[2018-10-05] MEDS: SPIRONOLACTONE 25 MG TABLET PO SCH (09:45)
[2018-10-05] MEDS: ASPIRIN CHEW 81 MG TABLET PO SCH (09:45)
[2018-10-05] MEDS: CARVEDILOL 12.5 MG TABLET PO SCH ×2 (09:45→22:33)
[2018-10-05 10:33] LABS: Free T4 (Free Thyroxine) 1.12 NG/DL (0.76-1.46)
[2018-10-05] MEDS: traZODone 50 MG TABLET PO SCH (22:33)
[2018-10-06 05:37] LABS: Basophils # 0.1 10*3/uL (0.0-0.2); Calcium 8.8 MG/DL (8.5-10.1); Eosinophils # 0.2 10*3/uL (0.0-0.87); Eosinophils % 2.4 % (0.00-10.9); Hematocrit 29.3 VOL% (35.7-47.0); Hemoglobin 9.7 GM/DL (12.0-16.0); Immature Granulocytes % 0.5 %; Immature Granulocytes Absolute 0.03 #; Lymphocytes # 2.6 10*3/uL (1.4-4.0); Lymphocytes % 41.1 % (21.3-54.2); Mean Corpuscular HGB Conc 33.1 GM/DL (32-36); Mean Corpuscular Hemoglobin 28 PG (27-34); Mean Corpuscular Volume 85.9 FL (87-102); Mean Platelet Volume 9.6 FL (9.6-12.0); Monocytes # 0.8 10*3/uL (0.11-0.8); Neutrophils # 2.7 10*3/uL (1.4-7.4); Osmolality,Calculated 279.5 MOS/KG (273-304); Platelet Count 342 T/CUMM (130-400); Potassium 3.9 MMOL/L (3.5-5.1); Red Blood Count 3.41 MC/CUMM (3.8-5.5); Red Cell Distribution Width 16.4 % (9.3-17.3); White Blood Count 6.2 T/CUMM (4-12)
[2018-10-06] MEDS: LEVOTHYROXINE 100 MCG TABLET PO SCH (06:33)
[2018-10-06] MEDS: SPIRONOLACTONE 25 MG TABLET PO SCH (10:45)
[2018-10-06] MEDS: SKIN HEALING OINT (AQUAPHOR) 50 GM TUBE TOP SCH (10:46)
[2018-10-06] MEDS: ASPIRIN CHEW 81 MG TABLET PO SCH (10:46)
[2018-10-06] MEDS: AMIODARONE 200 MG TABLET PO SCH ×2 (10:47→23:16)
[2018-10-06] MEDS: CARVEDILOL 12.5 MG TABLET PO SCH ×2 (10:47→23:16)
[2018-10-06] MEDS: POTASSIUM CHLORIDE 20 MEQ TABLET PO SCH (10:47)
[2018-10-06] MEDS: APIXABAN 5 MG TABLET PO SCH ×2 (10:47→23:17)
[2018-10-06] MEDS: FAMOTIDINE 20 MG TABLET PO SCH ×2 (10:47→23:17)
[2018-10-06] MEDS: MIDODRINE 5 MG TABLET PO SCH ×3 (10:47→23:17)
[2018-10-06] MEDS: MAGNESIUM CHLORIDE 64 MG TABLET PO SCH ×2 (10:48→23:17)
[2018-10-06] MEDS: FUROSEMIDE 20 MG TABLET PO SCH ×2 (10:48→15:21)
[2018-10-06] MEDS: metOLazone 2.5 MG TABLET PO SCH (10:48)
[2018-10-06] MEDS: ASCORBIC ACID 500 MG TABLET PO SCH ×2 (10:48→23:17)
[2018-10-06] MEDS: metOLazone 5 MG TABLET PO SCH (10:49)
[2018-10-06] MEDS ORDERED: FUROSEMIDE 40 MG TABLET PO SCH (16:00)
[2018-10-06] MEDS: traZODone 50 MG TABLET PO SCH (23:17)
[2018-10-07 04:09] LABS: Basophils % 0.6 % (0.0-0.8); Eosinophils # 0.2 10*3/uL (0.0-0.87); Eosinophils % 2.1 % (0.00-10.9); Hematocrit 29.6 VOL% (35.7-47.0); Immature Granulocytes % 0.4 %; Immature Granulocytes Absolute 0.03 #; Lymphocytes # 2.6 10*3/uL (1.4-4.0); Lymphocytes % 36.7 % (21.3-54.2); Mean Corpuscular HGB Conc 33.8 GM/DL (32-36); Mean Corpuscular Hemoglobin 29 PG (27-34); Mean Platelet Volume 9.4 FL (9.6-12.0); Monocytes % 13.6 % (1.7-12.7); Neutrophils # 3.3 10*3/uL (1.4-7.4); Neutrophils % 46.6 % (38.7-73.9); Platelet Count 343 T/CUMM (130-400); Red Blood Count 3.44 MC/CUMM (3.8-5.5); Red Cell Distribution Width 16.6 % (9.3-17.3)
[2018-10-07 04:22] LABS: Calcium 8.8 MG/DL (8.5-10.1); Osmolality,Calculated 275.8 MOS/KG (273-304); Potassium 3.8 MMOL/L (3.5-5.1)
[2018-10-07] MEDS: LEVOTHYROXINE 100 MCG TABLET PO SCH (06:30)
[2018-10-07] MEDS: AMIODARONE 200 MG TABLET PO SCH ×2 (08:10→21:42)
[2018-10-07] MEDS: metOLazone 2.5 MG TABLET PO SCH (08:10)
[2018-10-07] MEDS: FUROSEMIDE 20 MG TABLET PO SCH ×2 (08:10→15:21)
[2018-10-07] MEDS: MAGNESIUM CHLORIDE 64 MG TABLET PO SCH ×2 (08:10→21:43)
[2018-10-07] MEDS: SPIRONOLACTONE 25 MG TABLET PO SCH (08:11)
[2018-10-07] MEDS: ASPIRIN CHEW 81 MG TABLET PO SCH (08:11)
[2018-10-07] MEDS: CARVEDILOL 12.5 MG TABLET PO SCH ×2 (08:13→21:42)
[2018-10-07] MEDS: MIDODRINE 5 MG TABLET PO SCH ×3 (08:14→21:43)
[2018-10-07] MEDS: POTASSIUM CHLORIDE 20 MEQ TABLET PO SCH (08:14)
[2018-10-07] MEDS: APIXABAN 5 MG TABLET PO SCH ×2 (08:14→21:43)
[2018-10-07] MEDS: ASCORBIC ACID 500 MG TABLET PO SCH ×2 (08:15→21:43)
[2018-10-07] MEDS: SKIN HEALING OINT (AQUAPHOR) 50 GM TUBE TOP SCH (08:15)
[2018-10-07] MEDS: FAMOTIDINE 20 MG TABLET PO SCH ×2 (08:15→21:43)
[2018-10-07] MEDS: traZODone 50 MG TABLET PO SCH (21:42)
[2018-10-08 05:28] LABS: Basophils # 0.1 10*3/uL (0.0-0.2); Basophils % 0.8 % (0.0-0.8); Eosinophils # 0.2 10*3/uL (0.0-0.87); Eosinophils % 2.7 % (0.00-10.9); Hematocrit 29.8 VOL% (35.7-47.0); Hemoglobin 9.8 GM/DL (12.0-16.0); Immature Granulocytes % 0.3 %; Immature Granulocytes Absolute 0.02 #; Lymphocytes # 2.5 10*3/uL (1.4-4.0); Lymphocytes % 39.7 % (21.3-54.2); Mean Corpuscular HGB Conc 32.9 GM/DL (32-36); Mean Corpuscular Hemoglobin 29 PG (27-34); Mean Corpuscular Volume 86.6 FL (87-102); Mean Platelet Volume 9.3 FL (9.6-12.0); Monocytes # 0.8 10*3/uL (0.11-0.8); Monocytes % 12.3 % (1.7-12.7); Neutrophils # 2.8 10*3/uL (1.4-7.4); Neutrophils % 44.2 % (38.7-73.9); Platelet Count 372 T/CUMM (130-400); Red Blood Count 3.44 MC/CUMM (3.8-5.5); Red Cell Distribution Width 16.7 % (9.3-17.3); White Blood Count 6.3 T/CUMM (4-12)
[2018-10-08 05:53] LABS: Calcium 9.4 MG/DL (8.5-10.1); Osmolality,Calculated 277.7 MOS/KG (273-304)
[2018-10-08] MEDS: LEVOTHYROXINE 100 MCG TABLET PO SCH (06:02)
[2018-10-08] MEDS: MIDODRINE 5 MG TABLET PO SCH ×2 (08:13→15:24)
[2018-10-08] MEDS: FUROSEMIDE 20 MG TABLET PO SCH (08:13)
[2018-10-08] MEDS: FAMOTIDINE 20 MG TABLET PO SCH (08:14)
[2018-10-08] MEDS: APIXABAN 5 MG TABLET PO SCH (08:14)
[2018-10-08] MEDS: CARVEDILOL 12.5 MG TABLET PO SCH (08:14)
[2018-10-08] MEDS: MAGNESIUM CHLORIDE 64 MG TABLET PO SCH (08:14)
[2018-10-08] MEDS: POTASSIUM CHLORIDE 20 MEQ TABLET PO SCH (08:14)
[2018-10-08] MEDS: AMIODARONE 200 MG TABLET PO SCH (08:14)
[2018-10-08] MEDS: metOLazone 2.5 MG TABLET PO SCH (08:14)
[2018-10-08] MEDS: ASCORBIC ACID 500 MG TABLET PO SCH (08:14)
[2018-10-08] MEDS: ASPIRIN CHEW 81 MG TABLET PO SCH (08:15)
[2018-10-08] MEDS: SPIRONOLACTONE 25 MG TABLET PO SCH (08:15)
[2018-10-08] MEDS: SKIN HEALING OINT (AQUAPHOR) 50 GM TUBE TOP SCH (08:18)
[2018-10-08 12:09] VITALS: BP 97/69
== END 2018-10-08 15:22 | disposition home or self-care (01) | DRG 308 ==
LOC: N.ED 21:15 → N.EDINP 21:15 → SUATTDRO 10-03 02:03 → N.EDINP 10-03 07:02 → N.ICU 10-03 07:04 → SUATTDRO 10-05 13:50 → N.TELEN 10-05 15:25
PROVIDERS: ADMIT Internal Medicine; ATTEND Internal Medicine

== ENCOUNTER 2019-01-15 17:19 | Inpatient (IN) ==
[2019-01-15 20:19] LABS: Basophils % 0.5 % (0.0-0.8); Eosinophils % 0.5 % (0.00-10.9); Hematocrit 35.7 VOL% (35.7-47.0); Hemoglobin 11.7 GM/DL (12.0-16.0); Immature Granulocytes % 0.6 %; Immature Granulocytes Absolute 0.05 #; Lymphocytes # 1.7 10*3/uL (1.4-4.0); Lymphocytes % 20.5 % (21.3-54.2); Mean Corpuscular HGB Conc 32.8 GM/DL (32-36); Mean Corpuscular Hemoglobin 29 PG (27-34); Mean Platelet Volume 9.2 FL (9.6-12.0); Monocytes % 12.3 % (1.7-12.7); Neutrophils # 5.4 10*3/uL (1.4-7.4); Neutrophils % 65.6 % (38.7-73.9); Platelet Count 289 T/CUMM (130-400); Red Blood Count 4.01 MC/CUMM (3.8-5.5); Red Cell Distribution Width 17.6 % (9.3-17.3); White Blood Count 8.2 T/CUMM (4-12)
[2019-01-15 20:43] LABS: Albumin 3.3 G/DL (3.4-5.0); Bilirubin,Total 0.9 MG/DL (0.2-1.0); Calcium 8.9 MG/DL (8.5-10.1); Osmolality,Calculated 290.5 MOS/KG (273-304); Potassium 3.5 MMOL/L (3.5-5.1); Total Protein 7.9 G/DL (6.4-8.3)
[2019-01-16] MEDS ORDERED: ONDANSETRON 4 MG/2 ML VIAL IV PRN (00:37)
[2019-01-16] MEDS ORDERED: GLUCAGON 1 MG VIAL IM PRN (00:37)
[2019-01-16] MEDS ORDERED: DEXTROSE 50% 25 GM/50 ML SYRINGE IV PRN (00:37)
[2019-01-16] MEDS: ALBUTEROL/IPRATROPIUM 3 ML NEB RESP TX SCH ×7 (02:14→23:05)
[2019-01-16 02:56] LABS: CKMB % 6.8 %
[2019-01-16 02:59] LABS: Troponin I 0.261 NG/ML (0.00-0.045)
[2019-01-16 04:46] LABS: Apearance,Urine CLEAR (Clear); Bilirubin,Urine Negative (Negative); Blood, Urine Large mg/dL (Negative); Glucose,Urine (UA) Negative (Negative); Ketones,Urine Negative (Negative); Mucus,Urine Occasional /LPF (Occasional); Nitrite,Urine Negative (Negative); Protein,Urine Negative; RBC,Urine 109 /HPF (0-4); Squamous Epithelial Cell,Urine Occasional /HPF (0-10); Urine Color Yellow (Yellow); Urine Specific Gravity 1.011 (1.001-1.035); Urine Urobilinogen < 2.0 EU/DL (0.2-1.0); WBC,Urine 3 /HPF (0-6)
[2019-01-16] MEDS ORDERED: LEVOTHYROXINE 100 MCG TABLET PO SCH (06:30)
[2019-01-16 08:13] LABS: Calcium 9.1 MG/DL (8.5-10.1); Osmolality,Calculated 289.5 MOS/KG (273-304); Potassium 3.4 MMOL/L (3.5-5.1)
[2019-01-16 08:17] LABS: CKMB % 7.3 %
[2019-01-16 08:18] LABS: Troponin I 0.221 NG/ML (0.00-0.045)
[2019-01-16] MEDS ORDERED: FUROSEMIDE 40 MG/4 ML VIAL IV SCH (09:00)
[2019-01-16] MEDS ORDERED: AMIODARONE 200 MG TABLET PO SCH (09:00)
[2019-01-16] MEDS ORDERED: APIXABAN 5 MG TABLET PO SCH (09:00)
[2019-01-16] MEDS ORDERED: metOLazone 5 MG TABLET PO SCH (09:00)
[2019-01-16] MEDS ORDERED: PANTOPRAZOLE 40 MG TABLET PO SCH (09:00)
[2019-01-16] MEDS: MIDODRINE 5 MG TABLET PO SCH ×4 (09:03→22:53)
[2019-01-16] MEDS ORDERED: BISACODYL 5 MG TABLET PO ONE (14:44)
[2019-01-16] MEDS: POTASSIUM CHLORIDE 20 MEQ TABLET PO PRN ×3 (14:53→19:13)
[2019-01-16] MEDS ORDERED: ALUMINUM/MAGNES/SIMETH MAX STR 30 ML UDCUP PO PRN (16:30)
[2019-01-16] MEDS ORDERED: PROMETHAZINE 25 MG/1 ML VIAL IM ONE (22:16)
[2019-01-16] MEDS: CARVEDILOL 6.25 MG TABLET PO SCH ×2 (22:23→22:52)
[2019-01-16] MEDS: APIXABAN 5 MG TABLET PO SCH ×2 (22:24→22:52)
[2019-01-17] MEDS: ALBUTEROL/IPRATROPIUM 3 ML NEB RESP TX SCH (02:16)
[2019-01-17] MEDS ORDERED: DOBUTamine 500 MG/250 ML PREMIX IV PRN (05:39)
[2019-01-17] MEDS ORDERED: NOREPINEPHRINE 8 MG in SODIUM CHLORIDE 0.9% 242 ML IV PRN (05:45)
[2019-01-17] MEDS ORDERED: NOREPINEPHRINE 4 MG/4 ML VIAL IV ONE (05:46)
[2019-01-17] MEDS ORDERED: EPINEPHrine 1 MG/ML VIAL ONE (05:54)
[2019-01-17 07:26] VITALS: BP 57/15
[2019-01-17] MEDS ORDERED: SPIRONOLACTONE 25 MG TABLET PO SCH (09:00)
[2019-01-17] MEDS ORDERED: AMIODARONE 200 MG TABLET PO SCH (09:00)
== END 2019-01-17 06:04 | disposition expired | DRG 291 ==
LOC: N.ED 17:19 → N.EDINP 01-16 01:12 → N.TELES 01-16 02:05 → N.ICU 01-17 06:40
PROVIDERS: ADMIT Emergency Medicine; ATTEND Emergency Medicine